=== PATIENT | male | born 1960 | race Caucasian/White ===

== ENCOUNTER 2022-07-02 15:45 | Outpatient (CLI) | payer BC | END 2022-07-02 15:46 | disposition home or self-care (01) | LOC: CSHLAB 15:45 | PROVIDERS: ATTEND Surgery | DX: Z01.818 Encounter for other preprocedural examination (principal); Z20.822 Contact with and (suspected) exposure to COVID-19 | CPT/HCPCS: 87811; 93005; 93010 ==

== ENCOUNTER 2022-07-05 11:10 | Day surgery (SDC) | payer BC ==
[2022-07-03 14:38] VITALS: BMI 20.7
[2022-07-05] MEDS ORDERED: CEFAZOLIN 2 GM VIAL ONE (11:30)
[2022-07-05] MEDS ORDERED: Bupivacaine PF 0.5% 30 ML VIAL ONE (11:34)
[2022-07-05] MEDS ORDERED: EPINEPHrine 1 MG/ML AMP ONE (11:34)
[2022-07-05] MEDS ORDERED: HYDROmorphone 0.5 MG/0.5 ML SYRINGE ONE (12:12)
[2022-07-05] MEDS ORDERED: PROPOFOL 20 ML ONE (12:14)
[2022-07-05] MEDS ORDERED: Rocuronium Bromide 10 MG/ML (10ML VIAL) ONE (12:15)
[2022-07-05] MEDS ORDERED: Fentanyl 100 MCG/2 ML VIAL ONE ×2 (12:15→13:37)
[2022-07-05] MEDS ORDERED: Lidocaine 2% PF 5 ML VIAL ONE (12:17)
[2022-07-05] MEDS ORDERED: Ondansetron PF 4 MG/2 ML Vial ONE (12:43)
[2022-07-05] MEDS ORDERED: Dexamethasone 4 mg/ml Vial ONE (12:43)
[2022-07-05] MEDS ORDERED: Glycopyrrolate 0.2 MG/ML 5 ML SYRINGE ONE (12:55)
[2022-07-05] MEDS ORDERED: Acetaminophen 325 MG TAB PO PRN (13:47)
[2022-07-05] MEDS ORDERED: HYDROcodone/Acetaminophen 5/325 mg Tablet PO PRN (13:47)
[2022-07-05] MEDS ORDERED: HYDROcodone/Acetaminophen 5/325 mg Tablet ONE (14:57)
== END 2022-07-05 15:00 | disposition home or self-care (01) ==
LOC: CSHSDC 11:10
PROVIDERS: ATTEND Surgery
PROC: 0YU64JZ Supplement Left Inguinal Region with Synthetic Substitute, Percutaneous Endoscopic Approach (ICD-10-PCS; principal; 2022-07-05)
DX: K40.90 Unilateral inguinal hernia, without obstruction or gangrene, not specified as recurrent (principal); M54.50 Low back pain, unspecified; Z79.899 Other long term (current) drug therapy; Z20.822 Contact with and (suspected) exposure to COVID-19
CPT/HCPCS: C1713; J0171; J0690; J1100; J1170; J2001; J2405; J2704; J3010; S0020

== ENCOUNTER 2024-11-13 14:18 | Outpatient (CLI) | payer BC | END 2024-11-13 14:19 | disposition home or self-care (01) | LOC: CSHMRI 14:18 | PROVIDERS: ATTEND Family Medicine | DX: M54.50 Low back pain, unspecified (principal); M48.061 Spinal stenosis, lumbar region without neurogenic claudication; M48.07 Spinal stenosis, lumbosacral region; M54.16 Radiculopathy, lumbar region | CPT/HCPCS: 72148 ==